=== PATIENT | female | born 1970 | race Asian ===

== ENCOUNTER → 2017-04-08 | Outpatient (CLI) | payer BC ==
[2017-04-08 18:40] LABS: T4 FREE 1.23 ng/dL (0.76-1.46)
[2017-04-10 13:09] LABS: RUBEOLA AB IGG > 300.00 AU/mL (Immune >29.9)
[2017-04-12 05:20] LABS: MUMPS IGG ANTIBODY 9.9 AU/mL (Immune >10.9)
== END | disposition home or self-care (01) ==
LOC: LAB 15:33
DX: Z00.01 Encounter for general adult medical examination with abnormal findings (principal); Z13.89 Encounter for screening for other disorder; E03.8 Other specified hypothyroidism; Z23 Encounter for immunization; Z68.1 Body mass index [BMI] 19.9 or less, adult; R76.11 Nonspecific reaction to tuberculin skin test without active tuberculosis; Z71.3 Dietary counseling and surveillance
CPT/HCPCS: 36415; 84439; 84443; 84481; 86735; 86762; 86765; 86787; 87186; 87536

== ENCOUNTER → 2018-06-24 | Outpatient (CLI) | payer BC ==
[2018-06-24 14:08] LABS: CHLORIDE 106 mEq/L (98-107)
[2018-06-24 14:10] LABS: BASOPHILS % 0.8 % (0.0-2.0); EOSINOPHILS % 1.7 % (0.0-5.0); HEMATOCRIT. 40.3 % (36.0-48.0); HEMOGLOBIN. 13.7 g/dL (12.0-16.0); LYMPHOCYTES % 26.6 % (20.0-50.0); MEAN CORPUSCULAR HEMOGLOBIN 30.1 pg (28.0-32.0); MEAN CORPUSCULAR VOLUME 88.5 fL (81.0-99.0); MONOCYTES % 4.2 % (2.0-8.0); NEUTROPHILS % 66.7 % (40.0-76.0); PLATELET 292 x1000/uL (130-400); RED BLOOD CELL COUNT 4.55 mill/uL (4.2-5.4); RED CELL DISTRIBUTION WIDTH 13.6 % (11.6-14.6)
[2018-06-24 14:17] LABS: HDL CHOLESTEROL 49 mg/dL (40-59); LDL CHOLESTEROL 72 mg/dL (5-100)
[2018-06-26 17:06] LABS: QFT MITOGEN VALUE >10.00 IU/mL (.); QFT TB GOLD PLUS Positive (Negative); QFT TB1 AG VALUE 9.03 IU/mL (.)
== END | disposition home or self-care (01) ==
LOC: LAB 13:02
DX: Z12.4 Encounter for screening for malignant neoplasm of cervix (principal); Z13.89 Encounter for screening for other disorder; E04.1 Nontoxic single thyroid nodule; E03.8 Other specified hypothyroidism; R76.11 Nonspecific reaction to tuberculin skin test without active tuberculosis; Z68.1 Body mass index [BMI] 19.9 or less, adult; Z71.3 Dietary counseling and surveillance
CPT/HCPCS: 36415; 80061; 84443; 86480

== ENCOUNTER → 2018-07-16 | Outpatient (CLI) | payer BC | END | disposition home or self-care (01) | LOC: US 09:45 | DX: E04.1 Nontoxic single thyroid nodule (principal) | CPT/HCPCS: 76536 ==

== ENCOUNTER → 2019-03-10 | Outpatient (CLI) | payer BC ==
[2019-03-10 14:56] LABS: CHLORIDE 109 mEq/L (98-107)
== END | disposition home or self-care (01) ==
LOC: LAB 14:09
DX: B35.1 Tinea unguium (principal)
CPT/HCPCS: 36415

== ENCOUNTER → 2019-06-03 | Outpatient (CLI) | payer BC ==
[2019-06-03 13:36] LABS: T4 FREE 1.11 ng/dL (0.76-1.46)
== END | disposition home or self-care (01) ==
LOC: LAB 12:49
DX: E03.8 Other specified hypothyroidism (principal); E06.3 Autoimmune thyroiditis
CPT/HCPCS: 36415; 84439; 84443

== ENCOUNTER → 2019-07-26 | Outpatient (CLI) | payer BC | END | disposition home or self-care (01) | LOC: RAD 12:07 | DX: B35.1 Tinea unguium (principal) | CPT/HCPCS: 36415; 80076 ==

== ENCOUNTER → 2019-12-06 | Outpatient (CLI) | payer BC | END | disposition home or self-care (01) | LOC: LAB 08:03 | DX: Z22.7 Latent tuberculosis (principal) | CPT/HCPCS: 36415; 80076 ==

== ENCOUNTER → 2019-12-07 | Outpatient (CLI) | payer BC | END | disposition home or self-care (01) | LOC: US 09:07 | DX: E04.1 Nontoxic single thyroid nodule (principal) | CPT/HCPCS: 76536 ==

== ENCOUNTER → 2020-02-21 | Outpatient (CLI) | payer BC | END | disposition home or self-care (01) | LOC: LAB 08:22 | DX: Z22.7 Latent tuberculosis (principal) | CPT/HCPCS: 36415; 80076 ==

== ENCOUNTER → 2020-07-12 | Outpatient (CLI) | payer BC ==
[2020-07-12 13:22] LABS: T4 FREE 1.28 ng/dL (0.76-1.46)
== END | disposition home or self-care (01) ==
LOC: LAB 11:33
DX: E03.8 Other specified hypothyroidism (principal); E06.3 Autoimmune thyroiditis
CPT/HCPCS: 36415; 84439; 84443; 84481